=== PATIENT | female | born 1970 | race Caucasian/White ===

== ENCOUNTER 2024-11-03 09:38 | Emergency (ER) | payer BC ==
[~2024-11-03] VITALS: Ht 165.1 cm; Wt 65.8 kg
[2024-11-03] MEDS ORDERED: PRED20TA PO (10:11)
[2024-11-03] MEDS ORDERED: ALBU18HF2 INH (10:11)
[2024-11-03] MEDS ORDERED: ALBUTEROL FS 2.5 MG/3 ML VIAL.NEB ONE (10:15)
[2024-11-03] MEDS ORDERED: IPRATROPIUM NEB FS 0.5 MG/2.5 ML AMPUL.NEB ONE (10:15)
[2024-11-03] MEDS: predniSONE 20 MG TABLET PO ONE (10:18)
[2024-11-03 10:23] VITALS: O2SAT 96
[2024-11-03] MEDS: IPRATROPIUM NEB FS 0.5 MG/2.5 ML AMPUL.NEB NEB ONE (10:23)
[2024-11-03] MEDS: ALBUTEROL FS 2.5 MG/3 ML VIAL.NEB CONTNEB ONE (10:23)
[2024-11-03 11:25] VITALS: O2SAT 100
[2024-11-03 12:06] VITALS: BP 116/87; TEMP 98.6; O2SAT 100
== END 2024-11-03 12:06 | disposition home or self-care (01) ==
LOC: ER 09:44
DX: J45.901 Unspecified asthma with (acute) exacerbation (principal); J06.9 Acute upper respiratory infection, unspecified; R05.9 Cough, unspecified; R09.81 Nasal congestion; Z88.5 Allergy status to narcotic agent; Z60.2 Problems related to living alone